=== PATIENT | female | born 1980 | race African-American/Black ===

== ENCOUNTER 2021-05-28 23:15 | Emergency (ER) | payer BC ==
[~2021-05-28] VITALS: Ht 180.3 cm; Wt 77.0 kg
[2021-05-28] MEDS ORDERED: ONDANSETRON HCL 4MG/2ML INJ IV STA (23:34)
[2021-05-28] MEDS ORDERED: MORPHINE SULFATE 4 MG/ML CPJ (NOT FOR IM USE) IV STA (23:34)
[2021-05-28] MEDS ORDERED: SODIUM CHLORIDE 0.9% 1,000 ML IV ONE (23:45)
[2021-05-29 02:50] LABS: CLARITY URINE CLEAR (CLEAR); COLOR URINE YELLOW (YELLOW); KETONES URINE NEGATIVE (NEGATIVE); LEUKOCYTE ESTERASE URINE NEGATIVE (NEGATIVE); NITRITE URINE NEGATIVE (NEGATIVE); OCCULT BLOOD URINE TRACE (NEGATIVE); PROTEIN URINE NEGATIVE (NEGATIVE); SPECIFIC GRAVITY URINE 1.025 (1.005-1.030)
[2021-05-29 03:00] LABS: BASOPHILS % 0.5 % (0.0-2.0); EOSINOPHILS % 1.7 % (0.0-5.0); HEMATOCRIT. 38.7 % (36.0-48.0); LYMPHOCYTES % 34.9 % (20.0-50.0); MEAN CORPUSCULAR HEMOGLOBIN 32.1 pg (28.0-32.0); MEAN CORPUSCULAR VOLUME 95.9 fL (81.0-99.0); MEAN PLATELET VOLUME 10.4 fl (7.4-10.4); MONOCYTES % 7.7 % (2.0-8.0); NEUTROPHILS % 55.2 % (40.0-76.0); PLATELET 220 x1000/uL (130-400); RED BLOOD CELL COUNT 4.04 mill/uL (4.2-5.4); RED CELL DISTRIBUTION WIDTH 13.7 % (11.6-14.6)
[2021-05-29] MEDS ORDERED: MORPHINE SULFATE 2 MG/ML CPJ (NOT FOR IM USE) IV NR (03:00)
[2021-05-29 03:04] LABS: UCG SCREEN NEGATIVE
[2021-05-29 03:05] LABS: CHLORIDE 105 mEq/L (98-107)
[2021-05-29 03:06] LABS: INR 0.9; PROTHROMBIN TIME 10.1 sec (9.6-11.0)
[2021-05-29 03:14] VITALS: BP 159/96
[2021-05-29 03:19] LABS: ETHANOL BLOOD < 10 mg/dL
[2021-05-29 03:24] LABS: *AMPHETAMINES SCREEN URINE NEGATIVE (NEGATIVE); *BARBITURATES SCREEN URINE NEGATIVE (NEGATIVE); *BENZODIAZEPINES SCREEN URINE NEGATIVE (NEGATIVE); *COCAINE SCREEN URINE NEGATIVE (NEGATIVE); CANNABINOID URINE SCREEN NEGATIVE (NEGATIVE); METHADONE URINE SCREEN NEGATIVE (NEGATIVE); OPIATES URINE SCREEN NEGATIVE (NEGATIVE); PHENCYCLIDINE URINE SCREEN NEGATIVE (NEGATIVE)
[2021-05-29] MEDS ORDERED: SENNOSIDES/DOCUSATE SOD 8.6/50MG TABLET PO PRN (04:15)
[2021-05-29] MEDS ORDERED: MINERAL OIL 30ML BOTTLE PO ONE (04:15)
[2021-05-29] MEDS ORDERED: DOCUSATE SODIUM 100MG CAPSULE PO ONE (04:15)
[2021-05-29] MEDS ORDERED: DOCU-138 MT (05:09)
[2021-05-29] MEDS ORDERED: SENN-257 MT (05:09)
[2021-05-29] MEDS ORDERED: POTASSIUM CHLORIDE 20MEQ/PACKET PO ONE (05:15)
[2021-05-29] MEDS ORDERED: IOHEXOL-300 100 ML BOTTLE ONE (05:28)
== END 2021-05-29 06:44 | disposition home or self-care (01) ==
LOC: ER 23:15
DX: R10.32 Left lower quadrant pain (principal); K59.00 Constipation, unspecified; R03.0 Elevated blood-pressure reading, without diagnosis of hypertension
CPT/HCPCS: 36415; 71045; 74177; 80053; 80305; 80320; 81003; 81025; 83605; 83690; 84484; 85025; 85610; 86850; 86900; 86901; 93005; 96361; 96374; 96375; 99285; J2270; J2405; J7030; Q9967; G0480